=== PATIENT | female | born 1975 | race Caucasian/White ===

== ENCOUNTER → 2016-08-18 | Outpatient (CLI) | payer OTHER ==
[~2016-08-18] MED LIST: ALEV220T26 PO; AUGM875T27 PO; LINZ145C PO; METR500T10 PO; MIRA33504 PO; NORC5TAB PO; OMEP20CA3 PO; SENN-23 PO; VITMTA PO; [UNRECOGNIZED DRUG - CODE] PO
--- NOTE | 2016-08-18 17:15 | REP ---
RIGHT ELBOW, FIVE VIEWS: There is no evidence of an acute fracture, dislocation or intrinsic bone disease. The joint spaces are unremarkable. There is no joint effusion identified. IMPRESSION: No fracture or dislocation. Signed by Darrius Estrada MD 08/19/2016 12:41 P
== END ==
LOC: M LRY 16:33
PROVIDERS: ATTEND Family Medicine
DX: M77.11 Lateral epicondylitis, right elbow (principal)

== ENCOUNTER → 2017-01-12 | Outpatient (CLI) | payer OTHER ==
[~2017-01-12] MED LIST changes: -AUGM875T27 PO; +AUGM875T28 PO; +METR1TAB66 PO; -METR500T10 PO; +NORC1TAB4 PO; -NORC5TAB PO; +[UNRECOGNIZED DRUG - CODE] PO; -[UNRECOGNIZED DRUG - CODE] PO
== END ==
LOC: M RAD 16:09
PROVIDERS: ATTEND Obstetrics & Gynecology
DX: Z12.31 Encounter for screening mammogram for malignant neoplasm of breast (principal)

== ENCOUNTER → 2017-02-04 | Outpatient (CLI) | payer OTHER ==
--- NOTE | 2017-02-05 12:45 | REP ---
Digital diagnostic unilateral left breast mammography with CAD and focused left breast sonography: History: Palpable lump in the left breast in the 3 o'clock position. The patient reports that this has been present for 1 year. Mammographic findings: Routine views are complemented by magnified focal spot compression CC, MLO and true MLO views. These are acquired with a skin marker and affixed to the skin at the site of the palpable lump. The marker projects in the upper outer quadrant at approximately 1-2 o'clock. Scattered fibroglandular elements are seen. There is a small sharply circumscribed 5 mm nodular opacity adjacent to the skin marker on several of the mammographic views. No microcalcifications, architectural distortion, or worrisome skin change is appreciated. Sonographic findings: The left breast is scanned from 12 o'clock to 3 o'clock. At 1 o'clock, 4.8 cm from the nipple there is a complex hypoechoic area with enhanced through transmission resembling clustered microcyst formation. This measures 4 x 2 x 3 mm. There is a small artery adjacent. Also at 1 o'clock and corresponding to the palpable lump, 5.1 cm from the nipple is a 7 x 6 x 9 mm hypoechoic area which shows slight acoustic shadowing on several images. This subtle area is felt to be somewhat suspicious and is felt to correspond with the palpable abnormality. No other abnormality. Impression: BIRADS category 4 suspicious left breast imaging. Suspicious sonographic findings are seen at the palpable lump in the left breast and ultrasound guided needle biopsy is recommended. There is also a benign appearing complex cyst near by in the same area of the left breast. BI-RADS/ACR category 4 mammogram. Suspicious abnormality - biopsy should be considered. Usually requires biopsy. This mammogram was interpreted with the aid of an FDA-approved computer-aided detection system. The patient states she had a clinical breast exam in January 2017. The patient letter being requested is M4. Signed by Lino Xavier MD 02/05/2017 02:16 P
== END ==
LOC: M RAD 15:49
PROVIDERS: ATTEND Obstetrics & Gynecology
DX: N64.4 Mastodynia (principal)
CPT/HCPCS: 76642; G0206

== ENCOUNTER → 2017-04-13 | Outpatient (REF) | payer OTHER | LOC: M SFHCLERA 16:38 | PROVIDERS: ATTEND Nurse Practitioner Family | DX: R30.0 Dysuria (principal) ==

== ENCOUNTER 2017-08-27 12:48 | Day surgery (SDC) | payer OTHER ==
[2017-08-27] MEDS: NS 1,000 ML IV (13:30)
[2017-08-27] MEDS ORDERED: PROPOFOL 200 MG/20 ML VIAL As Ordered (13:34)
[2017-08-27] MEDS ORDERED: LIDOCAINE 2% INJ 100 MG/5 ML SDV (FOR ANES.) As Ordered (14:24)
== END 2017-08-27 14:36 | disposition home or self-care (01) ==
LOC: M OPP 12:48
DX: R12 Heartburn (principal); K29.70 Gastritis, unspecified, without bleeding; K58.9 Irritable bowel syndrome, unspecified; K59.00 Constipation, unspecified; K21.9 Gastro-esophageal reflux disease without esophagitis; R06.83 Snoring; F17.200 Nicotine dependence, unspecified, uncomplicated; Z88.1 Allergy status to other antibiotic agents; Z79.899 Other long term (current) drug therapy
CPT/HCPCS: 43239

== ENCOUNTER → 2019-02-17 | Outpatient (CLI) | payer OTHER ==
[~2019-02-17] MED LIST changes: +LINZ290C PO; +METR-265 PO; -METR1TAB66 PO; +MM S100C PO; -NORC1TAB4 PO; +NORC1TAB7 PO; -OMEP20CA3 PO; +OMEP20CA4 PO
== END ==
LOC: M RAD 15:06
PROVIDERS: ATTEND Obstetrics & Gynecology
DX: Z12.31 Encounter for screening mammogram for malignant neoplasm of breast (principal)

== ENCOUNTER → 2019-04-24 | Outpatient (CLI) | payer OTHER ==
--- NOTE | 2019-04-24 15:58 | REPMRS ---
Patient History The patient states she had a clinical breast exam in 2018. Family history of colorectal cancer in paternal grandfather. 3D TOMOSYNTHESIS WAS PERFORMED. The Ryan Galvez lifetime risk for breast cancer is 14.4%. Digital Mammo Screening Bilat: April 24, 2019 - Exam #: [id number] Bilateral CC and MLO view(s) were taken. Technologist: Melly Lara, Technologist Prior study comparison: February 04, 2017, left breast digital mammo diagnostic unilateral performed at [facility]. FINDINGS: The breast tissue is heterogeneously dense. This may lower the sensitivity of mammography. There has been no change in the appearance of the mammogram from the prior studies. There is a moderate amount of residual fibroglandular tissue which is fairly symmetric. There is no interval development of dominant mass, areas of architectural distortion, or clustered microcalcification typical of malignancy. Assessment: BI-RADS/ACR category 1 mammogram. Negative Mammogram. Recommendation Routine screening mammogram in 1 year (for women over age 40). This mammogram was interpreted with the aid of an FDA-approved computer-aided dectection system. Electronically Signed By: Darrius Estrada MD 04/24/19 [id number]
== END ==
LOC: M RAD 15:00
PROVIDERS: ATTEND Obstetrics & Gynecology
DX: Z12.31 Encounter for screening mammogram for malignant neoplasm of breast (principal)

== ENCOUNTER → 2020-04-23 | Outpatient (CLI) | payer OTHER ==
[~2020-04-23] MED LIST changes: +OMEP1CAP73 PO; -OMEP20CA4 PO; +[UNRECOGNIZED DRUG - CODE] PO; -[UNRECOGNIZED DRUG - CODE] PO
--- NOTE | 2020-04-23 18:08 | REP ---
INDICATION: SACROILIAC DYSFUNCTION, IMPINGEMENT, TENDONITIS, PAIN. COMPARISON: None. TECHNIQUE: Full cervical spine series performed including flexion and extension lateral views. FINDINGS: There is no compression fracture. There is no prevertebral soft tissue swelling. In the neutral position there is straightening and slight reversal of the normal cervical lordosis. In extension there is about 1 mm of retrolisthesis of C3 on C4 and C4 on C5. This reduces in the neutral position and in flexion. The disc spaces are relatively well preserved. There is no radiographic evidence of significant neural foraminal narrowing bilaterally. Small rudimentary cervical ribs are noted at the C7 level. IMPRESSION: No compression deformity. In extension there is about 1 mm of retrolisthesis of C3 on C4 and C4 on C5. This reduces in the neutral position and in flexion. The disc spaces are relatively well preserved. <Electronically signed by Darrius Estrada > 04/23/20 [id number]
--- NOTE | 2020-04-23 18:09 | REP ---
INDICATION: SACROILIAC DYSFUNCTION, IMPINGEMENT, TENDONITIS, PAIN. COMPARISON: None. TECHNIQUE: Three views right shoulder obtained. FINDINGS: There is no acute fracture, dislocation or intrinsic bone disease. The joint spaces appear normal. IMPRESSION: Negative right shoulder series. <Electronically signed by Darrius Estrada > 04/23/20 [id number]
--- NOTE | 2020-04-23 18:10 | REP ---
INDICATION: SACROILIAC DYSFUNCTION, IMPINGEMENT, TENDONITIS, PAIN COMPARISON: None. TECHNIQUE: Four views left wrist obtained. FINDINGS: There is no evidence of acute fracture, dislocation, or intrinsic bone disease.The joint spaces are unremarkable. IMPRESSION: Negative left wrist series. <Electronically signed by Drarius Etsrada > 04/23/20 [id number]
--- NOTE | 2020-04-23 18:13 | REP ---
INDICATION: SACROILIAC DYSFUNCTION, IMPINGEMENT, TENDONITIS, PAIN. COMPARISON: None. TECHNIQUE: Five views sacroiliac joints performed. FINDINGS: No fracture or dislocation is seen. There is mild bilateral narrowing and subchondral sclerosis at the sacroiliac joints in a symmetrical fashion. IMPRESSION: Mild bilateral arthritic changes sacroiliac joints. <Electronically signed by Darrius Estrada > 04/23/20 [id number]
[2020-04-23 19:39] LABS: BASO # 0.1 10^3/uL (0.0-0.2); BASO % 0.7 % (0.0-1.0); EOS % 8.6 % (0.0-3.0); HEMATOCRIT 44.2 % (36.0-47.0); HEMOGLOBIN 14.7 g/dl (12.0-15.5); LYMPH # 3.5 10^3/uL (1.5-5.0); LYMPH % 29.5 % (24.0-44.0); MEAN CORPUSCULAR HEMOGLOBIN 30.6 pg (27.0-33.0); MEAN CORPUSCULAR HGB CONC 33.3 g/dl (32.0-36.5); MEAN CORPUSCULAR VOLUME 92.1 fl (80.0-96.0); MONO # 1.3 10^3/uL (0.0-0.8); NEUTROPHILS # 5.9 10^3/uL (1.5-8.5); NEUTROPHILS % 49.8 % (36.0-66.0); PLATELET COUNT, AUTOMATED 403 10^3/uL (150-450); WHITE BLOOD COUNT 11.8 10^3/uL (4.0-10.0)
[2020-04-23 20:28] LABS: ERYTHROCYTE SEDIMENTATION RATE 1 mm/hr (0-20)
[2020-04-26 20:07] LABS: ANA (HEP2) Negative (.)
== END ==
LOC: M WUC 16:19
PROVIDERS: ATTEND Family Medicine
DX: M53.3 Sacrococcygeal disorders, not elsewhere classified (principal); M75.41 Impingement syndrome of right shoulder; M77.8 Other enthesopathies, not elsewhere classified; M50.31 Other cervical disc degeneration, high cervical region; M50.321 Other cervical disc degeneration at C4-C5 level

== ENCOUNTER → 2020-05-13 | Outpatient (CLI) | payer OTHER ==
[2020-05-13 20:10] LABS: BASO # 0.1 10^3/uL (0.0-0.2); BASO % 0.7 % (0.0-1.0); EOS # 0.9 10^3/uL (0.0-0.5); EOS % 6.9 % (0.0-3.0); HEMATOCRIT 42.4 % (36.0-47.0); HEMOGLOBIN 13.8 g/dl (12.0-15.5); LYMPH # 3.3 10^3/uL (1.5-5.0); LYMPH % 27.3 % (24.0-44.0); MEAN CORPUSCULAR HEMOGLOBIN 29.6 pg (27.0-33.0); MEAN CORPUSCULAR HGB CONC 32.5 g/dl (32.0-36.5); MONO # 1.2 10^3/uL (0.0-0.8); MONO % 9.8 % (0.0-5.0); NEUTROPHILS # 6.7 10^3/uL (1.5-8.5); NEUTROPHILS % 54.9 % (36.0-66.0); PLATELET COUNT, AUTOMATED 368 10^3/uL (150-450); RED BLOOD COUNT 4.66 10^6/uL (4.00-5.40); WHITE BLOOD COUNT 12.2 10^3/uL (4.0-10.0)
== END ==
LOC: M WUC 16:17
PROVIDERS: ATTEND Family Medicine
DX: D72.829 Elevated white blood cell count, unspecified (principal)

== ENCOUNTER → 2020-05-20 | Outpatient (CLI) | payer OTHER ==
[2020-05-20 20:01] LABS: BASO # 0.1 10^3/uL (0.0-0.2); BASO % 0.6 % (0.0-1.0); EOS # 0.9 10^3/uL (0.0-0.5); EOS % 8.2 % (0.0-3.0); HEMATOCRIT 40.9 % (36.0-47.0); HEMOGLOBIN 13.6 g/dl (12.0-15.5); LYMPH # 3.1 10^3/uL (1.5-5.0); LYMPH % 29.1 % (24.0-44.0); MEAN CORPUSCULAR HEMOGLOBIN 30.4 pg (27.0-33.0); MEAN CORPUSCULAR HGB CONC 33.3 g/dl (32.0-36.5); MEAN CORPUSCULAR VOLUME 91.5 fl (80.0-96.0); MONO % 9.6 % (0.0-5.0); NEUTROPHILS # 5.6 10^3/uL (1.5-8.5); NEUTROPHILS % 52.3 % (36.0-66.0); PLATELET COUNT, AUTOMATED 361 10^3/uL (150-450); RED BLOOD COUNT 4.47 10^6/uL (4.00-5.40); WHITE BLOOD COUNT 10.7 10^3/uL (4.0-10.0)
== END ==
LOC: M WUC 16:21
PROVIDERS: ATTEND Family Medicine
DX: D72.829 Elevated white blood cell count, unspecified (principal)

== ENCOUNTER 2020-05-27 14:22 | Outpatient (RCR) | payer OTHER | END 2020-05-30 | LOC: M PT 14:22 | PROVIDERS: ATTEND Family Medicine | DX: Z51.89 Encounter for other specified aftercare (principal); M77.8 Other enthesopathies, not elsewhere classified; M75.41 Impingement syndrome of right shoulder; M53.3 Sacrococcygeal disorders, not elsewhere classified; M54.2 Cervicalgia ==

== ENCOUNTER 2020-06-10 14:21 | Outpatient (RCR) | payer OTHER | END 2020-06-30 | LOC: M PT 14:21 | PROVIDERS: ATTEND Family Medicine | DX: Z51.89 Encounter for other specified aftercare (principal); M77.8 Other enthesopathies, not elsewhere classified; M75.41 Impingement syndrome of right shoulder; M53.3 Sacrococcygeal disorders, not elsewhere classified; M54.2 Cervicalgia ==

== ENCOUNTER → 2020-07-11 | Outpatient (CLI) | payer OTHER ==
--- NOTE | 2020-07-11 15:39 | REPMRS ---
Patient History The patient states she had a clinical breast exam in 05/2020. Family history of colorectal cancer in paternal grandfather. No Hormone Replacement Therapy Digital Woman Screen Mammo: July 11, 2020 - Exam #: [id number] Bilateral CC and MLO view(s) were taken. Technologist: Vesna Garcia, Technologist Prior study comparison: April 24, 2019, bilateral digital mammo screening bilat, performed at [facility]. February 04, 2017, left breast digital mammo diagnostic unilateral, performed at [facility]. FINDINGS: The breast tissue is heterogeneously dense. This may lower the sensitivity of mammography. The Volpara volumetric breast density category is: C. There is a moderate amount of heterogeneously dense fibroglandular tissue which is fairly symmetric. There is no interval development of dominant mass, architectural distortion, or grouped microcalcification typical of malignancy. There has been no change in the appearance of the mammogram from the prior studies. 3-D tomosynthesis shows no additional findings. Assessment: BI-RADS/ACR category 1 mammogram. Negative Mammogram. Recommendation Routine screening mammogram of both breasts in 1 year (for women over age 40). This patient's [facility] Lifetime Breast Cancer RIsk is estimated at 14.1 %. This mammogram was interpreted with the aid of an FDA-approved computer-aided dectection system. Electronically Signed By: Deangelo Xavier MD 07/11/20 [id number]
== END ==
LOC: M WHC 14:55
PROVIDERS: ATTEND Obstetrics & Gynecology
DX: Z12.31 Encounter for screening mammogram for malignant neoplasm of breast (principal)

== ENCOUNTER → 2020-09-03 | Outpatient (REF) | payer OTHER ==
[~2020-09-03] MED LIST changes: +NAPR220C24 PO
== END ==
LOC: M SFHCLERA 16:05
PROVIDERS: ATTEND Nurse Practitioner Family
DX: R30.0 Dysuria (principal)

== ENCOUNTER → 2020-10-31 | Outpatient (CLI) | payer OTHER ==
[~2020-10-31] MED LIST changes: +LEXA5TAB13 PO
--- NOTE | 2020-11-02 06:16 | ECWPNPC ---
PATIENT NAME: LAURIE MAO : 1975 GENDER: FEMALE VISIT DATE: 10/31/2020 DISCHARGE DATE: 10/31/20 1354 VISIT LOCKED DATE TIME: PHYSICIAN: JOANNE LEMA PHYSICIAN PAGER NO: ACTIVE RESOURCE: JOANNE LEMA REASON FOR APPOINTMENT 1. BACK PAIN HISTORY OF PRESENT ILLNESS DEPRESSION SCREENING: PHQ-9 LITTLE INTEREST OR PLEASURE IN DOING THINGSNEARLY EVERY DAY FEELING DOWN, DEPRESSED, OR HOPELESSMORE THAN HALF THE DAYS TROUBLE FALLING OR STAYING ASLEEP, OR SLEEPING TOO MUCHSEVERAL DAYS FEELING TIRED OR HAVING LITTLE ENERGYSEVERAL DAYS POOR APPETITE OR OVEREATING MORE THAN HALF THE DAYS FEELING BAD ABOUT YOURSELF-OR THAT YOU ARE A FAILURE OR HAVE LET YOURSELF OR YOUR FAMILY DOWN SEVERAL DAYS TROUBLE CONCENTRATING ON THINGS, SUCH READING THE NEWSPAPER OR WATCHING TELEVISION NOT AT ALL MOVING OR SPEAKING SO SLOWLY THAT OTHER PEOPLE COULD HAVE NOTICED. OR THE OPPOSITE- BEING SO FIDGETY OR RESTLESS THAT YOU HAVE BEEN MOVING AROUND A LOT MORE THAN USUALNOT AT ALL THOUGHTS THAT YOU WOULD BE BETTER OFF , OR OF HURTING YOURSELF IN SOME WAY?NOT AT ALL TOTAL SCORE:10 INTERPRETATIONMODERATE DEPRESSION PHQ-2 (2015 EDITION) LITTLE INTEREST OR PLEASURE IN DOING THINGS?NEARLY EVERY DAY FEELING DOWN, DEPRESSED, OR HOPELESS?MORE THAN HALF THE DAYS TOTAL SCORE5 GENERAL: HERE PER REFERRAL OF PRIMARY CARE FOR CHRONIC GENERALIZED BACK PAIN. DENIES PRECIPITATING EVENT. STATES THIS BEGAN ABOUT ONE YEAR AGO. PAIN IS WORSE AFTER STANDING ALL DAY LONG. HAS TRIED MULTIPLE DIFFERENT MEDICATIONS TO INCLUDE ALEVE, VOLTAREN GEL, CYMBALTA AND GABAPENTIN WITHOUT IMPROVEMENT. HAS HAD PHYSICAL THERAPY RECENTLY WITHOUT IMPROVEMENT. CONTINUES USING HEAT WHEN SHE GETS OUT OF WORK AND DOING HOME STRETCHING EXERCISES. CURRENTLY BEING EVALUATED BY ONCOLOGY FOR ABNORMAL BLOOD WORK. RECENT CARPAL TUNNEL RELEASE AT [facility]. DENIES BOWEL OR BLADDER INCONTINENCE. REPORTS WEIGHT GAIN. - - -. FALL RISK SCREENING: SCREENING ONE FALL IN 09/2020 HURT HER LEFT ANKLE SPRAIN, STATED THAT SHE DID GO TO ER FOR IT. PAIN SCREENING: PATIENT HAS A COMPLAINT OF ACUTE OR CHRONIC PAIN :YES LOCATION OF PAIN:MID BACK, LOW BACK INTENSITY OF PAIN (SCALE OF 1 TO 10):1 WHAT DOES YOUR PAIN FEEL LIKE:ACHING DURATION:CONTINOUS, CONSTANT, ALL DAY PAIN IS INCREASED BY:ACTIVITIES, PROLONGED STANDING PAIN IS DECREASED BY:OTHERS HEAT AND STRETCHING NURSING NOTE: - - -. PAIN CENTER INTAKE QUESTIONS: DO YOU HAVE A HISTORY OF MRSA? :NO DO YOU TAKE A BLOOD THINNERS? :NO DO YOU HAVE ANY BLEEDING DISORDERS? :NO ANY NEW NUMBNESS OR WEAKNESS IN YOUR LEGS OR ARMS? :NO ANY PACEMAKER,DEFIBRILLATOR, OR DORSAL COLUMN STIMULATOR? :NO DO YOU HAVE ANY RASHES OR OPEN SORES? :NO ARE YOU ALLERGIC TO IV DYE? :NO ARE YOU DIABETIC? :NO ANY NEW PROBLEMS WITH YOUR MEDICATIONS? :NO HAVE YOU RECEIVED A VACCINE IN THE PAST 30 DAYS? :NO DO YOU PLAN TO RECEIVE A VACCINE IN THE NEXT 21 DAYS? :NO DO YOU NEED ANY PRESCRIPTION? :NO DO YOU TAKE ANY IMMUNOSUPPRESSIVE MEDICATIONS? :NO IS THERE A CHANCE YOU COULD BE ? :NO ARE YOU BREAST FEEDING? :NO CURRENT MEDICATIONS TAKING SENNA S 8.6-50MG TABLET 6 TABLETS ORALLY ONCE IN THE MORNING TAKING ALEVE 220 MG CAPSULE 3 TABLETS ORALLY FOUR TIMES A DAY, NOTES: TAKES 9-12 DAILY TAKING MULTIVITAMIN - TABLET 1 TABLET ORALLY ONCE A DAY TAKING ZYRTEC ALLERGY 10 MG TABLET 1 TABLET ORALLY ONCE A DAY TAKING OMEPRAZOLE 40 MG CAPSULE DELAYED RELEASE 1 CAPSULE ORALLY ONCE A DAY TAKING LEXAPRO 5 MG TABLET 1 TABLET ORALLY ONCE A DAY TAKING LINZESS 290 MCG CAPSULE 1 CAPSULE ORALLY ONCE A DAY MEDICATION LIST REVIEWED AND RECONCILED WITH THE PATIENT PAST MEDICAL HISTORY SEASONAL ALLERGIC RHINITIS GERD WITHOUT ESOPHAGITIS WEIGHT GAIN OCD (OBSESSIVE COMPULSIVE DISORDER) TOBACCO ABUSE ONE FALL IN 09/2020 HURT HER LEFT ANKLE SPRAIN, STATED THAT SHE DID GO TO ER FOR IT. LOWER NAD ID BACK PAIN ALLERGIES BACTRIM: HIVES - ALLERGY SURGICAL HISTORY TUBAL LIGATION WISDOM TEETH EXTRACT 6TH GRADE LAPAROSCOPY OPEN FALLOPIAN TUBES FOR FERTILITY 2006 HYSTERECTOMY FOR ABNORMAL UTERINE BLEEDING, BY DR. DAMIAN, STILL HAS OVARIES FALL 2018 CARPAL TUNNEL RELEASE AT [facility] FAMILY HISTORY FATHER: ALIVE 57 YRS MOTHER: ALIVE 55 YRS, DIAGNOSED WITH HYPERTENSION, DIABETES SIBLINGS: ALIVE SON(S): ALIVE 13 YRS 2 BROTHER(S) , 3 SISTER(S) - HEALTHY. 1 SON(S) - HEALTHY. NO HISTORY OF CANCERS. MATERNAL GRANDMOTHER-MS. SOCIAL HISTORY GENERAL: TOBACCO USE ARE YOU A:CURRENT SMOKER ARE YOU INTERESTED IN QUITTING?READY TO QUIT PREVIOUS QUIT ATTEMPTS?YES, MORE THAN 6 MONTHS AGO. COUNSELED THE PATIENT ON TOBACCO USE, CESSATION [id number]/04/2021 HOW MANY CIGARETTES A DAY DO YOU SMOKE?11-20 HOW SOON AFTER YOU WAKE UP DO YOU SMOKE YOUR FIRST CIGARETTE?6-30 MIN HOW OFTEN DO YOU SMOKE CIGARETTES?EVERY DAY PATIENT COUNSELED ON THE DANGERS OF TOBACCO USE AND URGED TO QUIT:10/01/2020 VAPORNO E-CIGARETTENO LATEX QUESTIONNAIRE LATEX ALLERGY : HAVE YOU EVER DEVELOPED ANY TYPE OF REACTION AFTER HANDLING LATEX PRODUCTS SUCH RUBBER GLOVES, CONDOMS, DIAPHRAGMS, BALLOONS, SOCKS, OR UNDERWEAR?NO LATEX ALLERGY : HAVE YOU EVER DEVELOPED ANY TYPE OF REACTION DURING OR AFTER DENTAL APPOINTMENT, VAGINAL/RECTAL EXAMINATION, SURGICAL PROCEDURE, OR ANY OTHER EXPOSURE?NO LATEX RISK : HAVE YOU EVER HAD ANY DIFFICULTY BREATHING OR HIVES AFTER EATING OR HANDLING ANY FRUITS, OR VEGETABLES; SUCH KIWI, BANANAS, STONE FRUITS, OR CHESTNUTSNO LATEX RISK : DO YOU HAVE A PREVIOUS PERSONAL HISTORY OF MORE THAN NINE SURGERIES, SPINA BIFIDA, OR REPEATED CATHERIZATIONS? NO LATEX RISK : ARE YOU FREQUENTLY EXPOSED TO LATEX PRODUCTS IN YOUR OCCUPATION?NO DATE ASKED : 10/31/2020 ALCOHOL USE: YES, ONCE A MONTH. ALCOHOL SCREENING DID YOU HAVE A DRINK CONTAINING ALCOHOL IN THE PAST YEAR?YES HOW OFTEN DID YOU HAVE SIX OR MORE DRINKS ON ONE OCCASION IN THE PAST YEAR?NEVER (0 POINTS) HOW MANY DRINKS DID YOU HAVE ON A TYPICAL DAY WHEN YOU WERE DRINKING IN THE PAST YEAR?1 OR 2 (0 POINTS) HOW OFTEN DID YOU HAVE A DRINK CONTAINING ALCOHOL IN THE PAST YEAR?NEVER (0 POINTS) POINTS0 INTERPRETATIONNEGATIVE RECREATIONAL DRUG USE DENIES. CAFFEINE NO BEVERAGES, BUT TAKES STAY AWAKES. HIV / HEP-C SCREENING HIV TEST OFFERED TO PATIENT:YES DATE OFFERED:08/30/2018 TEST ACCEPTED:NO HEP-C TEST OFFERED TO PATIENT:NO REASON:PATIENT DECLINED BROCHURE PROVIDED TO PATIENTYES [employer] [id number] NONE LANGUAGE LANGUAGES SPOKEN:ARMENIAN EDUCATION HS GRAD. LEARNING BARRIERS / SPECIAL NEEDS CHANGE FROM LAST VISIT?NO BARRIERS TO LEARNING?NO HEARING IMPAIRED?NO VISION IMPAIRED?NO COGNITIVELY IMPAIRED?NO READINESS TO LEARN?YES LEARNING PREFERENCES?NO LEARNING CAPABILITIES PRESENT?YES EMOTIONAL BARRIERS?NO SPECIAL DEVICES?NO MEAT INSPECTOR NEEDED?NO DOMESTIC VIOLENCE DO YOU FEEL SAFE IN YOUR ENVIRONMENT?YES OCCUPATION: [employer]. DIET: REGULAR DIET, BARELY EATS. EXERCISE: NO REGULAR EXERCISE. MARITAL STATUS: .. OTHERS AT HOME: CHILD, BOYFRIEND. HOSPITALIZATION/MAJOR DIAGNOSTIC PROCEDURE SURGERY CHILDBIRTH 2008 REVIEW OF SYSTEMS CONSTITUTIONAL: ANY RECENT FEVER NO . CHILLS NO . WEIGHT CHANGE OF UNKNOWN REASONS NO . GASTROENTEROLOGY: NEW UNEXPLAINABLE CHANGES IN BOWEL CONTROL NO . CONSTIPATION NO . GENITOURINARY: ANY NEW CHANGE IN BLADDER CONTROL? NO . NEUROLOGY: NEW ONSET DIZZINESS OR NEUROLOGICAL CHANGES NOT MENTIONED NO . NEW NUMBNESS OR PAIN PATTERNS NOT MENTIONED AND PERTINENT TO TODAY'S VISIT NO . CARDIOLOGY: NEW CHEST PRESSURE NO . PATIENT DENIES NO . RESPIRATORY: UNEXPLAINABLE COUGH NO . NEW SHORTNESS OF BREATH NO . VITAL SIGNS WT 151 LBS, HT 62 IN, BMI 27.62 INDEX, BP 123/72 MM HG, HR 82 /MIN, RR 16 /MIN, TEMP 97.3 F, OXYGEN SAT % 98%, SAFE IN ENV? (Y/N) YEST.KRISTA DYE. EXAMINATION GENERAL EXAMINATION: GENERALNO ACUTE DISTRESS, WELL NOURISHED AND HYDRATED. PSYCHAPPROPRIATE MOOD AND AFFECT . NECK:NO LYMPHADENOPATHY, SUPPLE. LUNGS:CLEAR TO AUSCULTATION BILATERALLY, NO WHEEZES, RHONCHI, RALES. HEART:NO MURMURS, REGULAR RATE AND RHYTHM. BACK:TENDERNESS AND TRIGGER POINTS NOTED OVER RIGHT MID SCAPULAR EXTENDING DOWN INTO RIGHT LUMBAR PARASPINAL REGION. TENDER OVER BILATERAL LUMBAR REGION. . ASSESSMENTS LOW BACK PAIN AT MULTIPLE SITES - M54.5 (PRIMARY) MYALGIA, OTHER SITE - M79.18 TREATMENT LOW BACK PAIN AT MULTIPLE SITES STOP ALEVE CAPSULE, 220 MG, 3 TABLETS, ORALLY, FOUR TIMES A DAY, NOTES: TAKES 9-12 DAILY STOP LEXAPRO TABLET, 5 MG, 1 TABLET, ORALLY, ONCE A DAY START IBUPROFEN TABLET, 600 MG, 1 TABLET WITH FOOD OR MILK NEEDED, ORALLY, THREE TIMES A DAY, 30 DAYS, 90 TABLET, REFILLS 5 START CYMBALTA CAPSULE DELAYED RELEASE PARTICLES, 30 MG, 1 CAPSULE, ORALLY, ONCE A DAY, 30 DAY(S), 30, REFILLS 2 START TIZANIDINE HCL TABLET, 2 MG, 1 TABLET NEEDED, ORALLY, Q4-6 HRS NEEDED FOR SEVERE PAIN EPISODES NOT TO EXCEED 3 TAB IN 24HR PERIOD, 30 DAYS, 30, REFILLS 2 NOTES: ADVISED PATIENT TO STOP ALEVE AND LEXAPRO. START CYMBALTA 30 MG 1 TABLET IN MORNING. START IBUPROFEN 600 MG CAPSULE WITH ACETAMINOPHEN 650 MG STRENGTH 3 TIMES DAILY. START TIZANIDINE 2 MG TABLET NEEDED FOR SEVERE PAIN EPISODES. FOLLOW-UP IS SCHEDULED IN 6-8 WEEKS. PRINTED INFORMATION ON NEW MEDICATION FOR PATIENT ANTHONY DYE. PROCEDURE CODES FA211 ESTABILISHED PATIENT [facility] CHARGE DISPOSITION & COMMUNICATION FOLLOW UP 6-8WKS (REASON: GENERALIZED BACK PAIN/MEDICATION MANAGEMENT AFTER STARTING NEW MEDS) ELECTRONICALLY SIGNED BY LIZZ MENON ON 11/01/2020 AT 10:18 AM EDT DISCLAIMER : THIS IS A VISIT SUMMARY EXTRACTED FROM THE [employer] CHART. IT IS NOT A COPY OF THE [employer] PROGRESS NOTE. LOGAN
== END ==
LOC: M PAIN 13:00
PROVIDERS: ATTEND Nurse Practitioner Family
DX: M54.5 Low back pain (principal); M79.18 Myalgia, other site; K21.9 Gastro-esophageal reflux disease without esophagitis; F17.210 Nicotine dependence, cigarettes, uncomplicated; Z86.59 Personal history of other mental and behavioral disorders; Z88.1 Allergy status to other antibiotic agents; Z79.899 Other long term (current) drug therapy

== ENCOUNTER → 2020-12-24 | Outpatient (CLI) | payer OTHER ==
--- NOTE | 2020-12-26 00:28 | ECWPNPC ---
PATIENT NAME: LAURIE MAO : 1975 GENDER: FEMALE VISIT DATE: 12/24/2020 DISCHARGE DATE: 12/24/20 1522 VISIT LOCKED DATE TIME: PHYSICIAN: JOANNE LEMA PHYSICIAN PAGER NO: ACTIVE RESOURCE: JOANNE LEMA REASON FOR APPOINTMENT 1. GENERALIZED BACK PAIN/MEDICATION MANAGEMENT AFTER STARTING NEW MEDS HISTORY OF PRESENT ILLNESS GENERAL: HERE FOR FOLLOW-UP AFTER INITIAL VISIT FOR CHRONIC LOW BACK PAIN. AT HER LAST VISIT I PUT HER ON CYMBALTA 30 MG DAILY. I ALSO PRESCRIBED TIZANIDINE 2 MG TABLETS TO TAKE INTERMITTENTLY FOR SEVERE PAIN EPISODES. CURRENTLY TAKING TYLENOL/IBUPROFEN COMBINATION VPMG-[id number] 3 TIMES A DAY AND CYMBALTA 30 MG DAILY. STATES SHE HAS NOT STARTED TIZANIDINE SHE DID NOT FEEL THOUGH IT WOULD BE HELPFUL. REPORTING SEVERE LOW BACK PAIN DESPITE HER CURRENT REGIMENT FOR PAIN. SHE CONTINUES TO WORK FULL-TIME. DISCUSSED MEDICATION TREATMENT PLAN AT LENGTH. -. FALL RISK SCREENING: SCREENING : NO FALLS REPORTED IN THE LAST YEAR. PAIN SCREENING: PATIENT HAS A COMPLAINT OF ACUTE OR CHRONIC PAIN :YES LOCATION OF PAIN:LOW BACK INTENSITY OF PAIN (SCALE OF 1 TO 10):8 WHAT DOES YOUR PAIN FEEL LIKE:ACHING, CONTINOUS, THROBBING DURATION:CONTINOUS, CONSTANT, ALL DAY PAIN IS INCREASED BY:ACTIVITIES PAIN IS DECREASED BY:USE OF PAIN MEDICATIONS NURSING NOTE: -. PAIN CENTER INTAKE QUESTIONS: DO YOU HAVE A HISTORY OF MRSA? :NO DO YOU TAKE A BLOOD THINNERS? :NO DO YOU HAVE ANY BLEEDING DISORDERS? :NO ANY NEW NUMBNESS OR WEAKNESS IN YOUR LEGS OR ARMS? :NO ANY PACEMAKER,DEFIBRILLATOR, OR DORSAL COLUMN STIMULATOR? :NO DO YOU HAVE ANY RASHES OR OPEN SORES? :NO ARE YOU ALLERGIC TO IV DYE? :NO ARE YOU DIABETIC? :NO ANY NEW PROBLEMS WITH YOUR MEDICATIONS? :NO HAVE YOU RECEIVED A VACCINE IN THE PAST 30 DAYS? :NO DO YOU PLAN TO RECEIVE A VACCINE IN THE NEXT 21 DAYS? :NO DO YOU NEED ANY PRESCRIPTION? :NO DO YOU TAKE ANY IMMUNOSUPPRESSIVE MEDICATIONS? :NO IS THERE A CHANCE YOU COULD BE ? :NO ARE YOU BREAST FEEDING? :NO CURRENT MEDICATIONS TAKING MULTIVITAMIN - TABLET 1 TABLET ORALLY ONCE A DAY TAKING ZYRTEC ALLERGY 10 MG TABLET 1 TABLET ORALLY ONCE A DAY TAKING OMEPRAZOLE 40 MG CAPSULE DELAYED RELEASE 1 CAPSULE ORALLY ONCE A DAY TAKING LINZESS 290 MCG CAPSULE 1 CAPSULE ORALLY ONCE A DAY TAKING CYMBALTA 30 MG CAPSULE DELAYED RELEASE PARTICLES 1 CAPSULE ORALLY ONCE A DAY TAKING IBUPROFEN 600 MG TABLET 1 TABLET WITH FOOD OR MILK NEEDED ORALLY THREE TIMES A DAY TAKING TIZANIDINE HCL 2 MG TABLET 1 TABLET NEEDED ORALLY Q4-6 HRS NEEDED FOR SEVERE PAIN EPISODES NOT TO EXCEED 3 TAB IN 24HR PERIOD TAKING SENNA S 8.6-50MG TABLET 6 TABLETS ORALLY ONCE IN THE MORNING TAKING TYLENOL 8 HOUR ARTHRITIS PAIN 650 MG TABLET EXTENDED RELEASE 3 TABLETS NEEDED ORALLY EVERY 8 HRS MEDICATION LIST REVIEWED AND RECONCILED WITH THE PATIENT PAST MEDICAL HISTORY SEASONAL ALLERGIC RHINITIS GERD WITHOUT ESOPHAGITIS WEIGHT GAIN OCD (OBSESSIVE COMPULSIVE DISORDER) TOBACCO ABUSE ONE FALL IN 09/2020 HURT HER LEFT ANKLE SPRAIN, STATED THAT SHE DID GO TO ER FOR IT. LOWER NAD GA BACK PAIN ALLERGIES BACTRIM: HIVES - ALLERGY SOCIAL HISTORY GENERAL: TOBACCO USE ARE YOU A:CURRENT SMOKER ARE YOU INTERESTED IN QUITTING?READY TO QUIT PREVIOUS QUIT ATTEMPTS?YES, MORE THAN 6 MONTHS AGO. COUNSELED THE PATIENT ON TOBACCO USE, CESSATION [id number]/27/2021 HOW MANY CIGARETTES A DAY DO YOU SMOKE?11-20 HOW SOON AFTER YOU WAKE UP DO YOU SMOKE YOUR FIRST CIGARETTE?6-30 MIN HOW OFTEN DO YOU SMOKE CIGARETTES?EVERY DAY PATIENT COUNSELED ON THE DANGERS OF TOBACCO USE AND URGED TO QUIT:12/24/2020 VAPORNO E-CIGARETTENO LATEX QUESTIONNAIRE LATEX ALLERGY : HAVE YOU EVER DEVELOPED ANY TYPE OF REACTION AFTER HANDLING LATEX PRODUCTS SUCH RUBBER GLOVES, CONDOMS, DIAPHRAGMS, BALLOONS, SOCKS, OR UNDERWEAR?NO LATEX ALLERGY : HAVE YOU EVER DEVELOPED ANY TYPE OF REACTION DURING OR AFTER DENTAL APPOINTMENT, VAGINAL/RECTAL EXAMINATION, SURGICAL PROCEDURE, OR ANY OTHER EXPOSURE?NO LATEX RISK : HAVE YOU EVER HAD ANY DIFFICULTY BREATHING OR HIVES AFTER EATING OR HANDLING ANY FRUITS, OR VEGETABLES; SUCH KIWI, BANANAS, STONE FRUITS, OR CHESTNUTSNO LATEX RISK : DO YOU HAVE A PREVIOUS PERSONAL HISTORY OF MORE THAN NINE SURGERIES, SPINA BIFIDA, OR REPEATED CATHERIZATIONS? NO LATEX RISK : ARE YOU FREQUENTLY EXPOSED TO LATEX PRODUCTS IN YOUR OCCUPATION?NO DATE ASKED : 12/24/2020 ALCOHOL USE: YES, ONCE A MONTH. LUNG CANCER SCREENING SMOKING STATUS:CURRENT SMOKER ALCOHOL SCREENING DID YOU HAVE A DRINK CONTAINING ALCOHOL IN THE PAST YEAR?YES HOW OFTEN DID YOU HAVE SIX OR MORE DRINKS ON ONE OCCASION IN THE PAST YEAR?NEVER (0 POINTS) HOW MANY DRINKS DID YOU HAVE ON A TYPICAL DAY WHEN YOU WERE DRINKING IN THE PAST YEAR?1 OR 2 (0 POINTS) HOW OFTEN DID YOU HAVE A DRINK CONTAINING ALCOHOL IN THE PAST YEAR?NEVER (0 POINTS) POINTS0 INTERPRETATIONNEGATIVE RECREATIONAL DRUG USE DRUG USE?NO CAFFEINE CAFFEINE USE?YES SEXUAL HX HAD SEX IN THE LAST 12 MONTHS (VAGINAL, ORAL, OR ANAL)?YES WITHMEN ONLY USE PROTECTION?NO HAVE YOU EVER HAD AN STD?YES HERPES?YES HIV / HEP-C SCREENING HIV TEST OFFERED TO PATIENT:YES DATE OFFERED:08/30/2018 TEST ACCEPTED:NO HEP-C TEST OFFERED TO PATIENT:NO REASON:PATIENT DECLINED BROCHURE PROVIDED TO PATIENTYES SCIENTOLOGY [id number] NONE LANGUAGE LANGUAGES SPOKEN:[employer]. LEARNING BARRIERS / SPECIAL NEEDS CHANGE FROM LAST VISIT?NO BARRIERS TO LEARNING?NO HEARING IMPAIRED?NO VISION IMPAIRED?YES :CORRECTIVE LENSES READING COGNITIVELY IMPAIRED?NO READINESS TO LEARN?YES LEARNING PREFERENCES?NO LEARNING CAPABILITIES PRESENT?YES EMOTIONAL BARRIERS?NO SPECIAL DEVICES?NO [employer] DEVELOPER NEEDED?NO DOMESTIC VIOLENCE DO YOU FEEL SAFE IN YOUR ENVIRONMENT?YES OCCUPATION: [employer]. DIET: REGULAR DIET, BARELY EATS. EXERCISE: NO REGULAR EXERCISE. MARITAL STATUS: .. OTHERS AT HOME: CHILD, BOYFRIEND. REVIEW OF SYSTEMS CONSTITUTIONAL: ANY RECENT FEVER NO . CHILLS NO . WEIGHT CHANGE OF UNKNOWN REASONS NO . GASTROENTEROLOGY: NEW UNEXPLAINABLE CHANGES IN BOWEL CONTROL NO . CONSTIPATION NO . GENITOURINARY: ANY NEW CHANGE IN BLADDER CONTROL? NO . NEUROLOGY: NEW ONSET DIZZINESS OR NEUROLOGICAL CHANGES NOT MENTIONED NO . NEW NUMBNESS OR PAIN PATTERNS NOT MENTIONED AND PERTINENT TO TODAY'S VISIT NO . CARDIOLOGY: NEW CHEST PRESSURE NO . PATIENT DENIES NO . RESPIRATORY: UNEXPLAINABLE COUGH NO . NEW SHORTNESS OF BREATH NO . VITAL SIGNS WT 150 LBS, HT 62 IN, BMI 27.43 INDEX, BP 133/77 MM HG, HR 88 /MIN, RR 18 /MIN, TEMP 97.2 F, OXYGEN SAT % 100%, SAFE IN ENV? (Y/N) YEST.KRISTA DYE. EXAMINATION GENERAL EXAMINATION: GENERALAWAKE,ALERT ,PLEASANT . PSYCHAFFECT NORMAL . LUNGS:LUNG NIÑO ARE CLEAR TO AUSCULTATION BILATERALLY. GOOD MOVEMENT OF AIR . HEART:S1, S2 IN A REGULAR RATE AND RHYTHM. NO SIGNIFICANT MURMURS, RUBS OR GALLOPS NOTED . ASSESSMENTS LOW BACK PAIN AT MULTIPLE SITES - M54.5 (PRIMARY) MYALGIA, OTHER SITE - M79.18 TREATMENT LOW BACK PAIN AT MULTIPLE SITES INCREASE CYMBALTA CAPSULE DELAYED RELEASE PARTICLES, 60 MG, 1 CAPSULE, ORALLY, ONCE A DAY, 30 DAYS, 30 CAPSULE, REFILLS 2 CONTINUE TIZANIDINE HCL TABLET, 2 MG, 1 TABLET NEEDED, ORALLY, Q4-6 HRS NEEDED FOR SEVERE PAIN EPISODES NOT TO EXCEED 3 TAB IN 24HR PERIOD NOTES: TODAY I HAVE ADVISED HER TO TRY TIZANIDINE 2 MG TABLET FOR THOSE TIMES WHERE THE PAIN IS VERY INTENSE. SHE IS ADVISED TO TAKE THIS INITIALLY ON DAYS THAT SHE IS NOT DRIVING OR WORKING. TODAY WE INCREASED CYMBALTA TO 60 MG DAILY. ADVISED TO CONTINUE TYLENOL/IBUPROFEN COMBINATION PILL 3 TIMES DAILY. FOLLOW-UP SCHEDULED IN 3 MONTHS. PROCEDURE CODES [id number] ESTABILISHED PATIENT [facility] CHARGE DISPOSITION & COMMUNICATION FOLLOW UP 3 MONTHS (REASON: MEDICATION MANAGEMENT) ELECTRONICALLY SIGNED BY LIZZ MENON ON 12/25/2020 AT 01:11 PM EDT DISCLAIMER : THIS IS A VISIT SUMMARY EXTRACTED FROM THE [employer] CHART. IT IS NOT A COPY OF THE [employer] PROGRESS NOTE. LOGAN
== END ==
LOC: M PAIN 14:45
PROVIDERS: ATTEND Nurse Practitioner Family
DX: M54.5 Low back pain (principal); M79.18 Myalgia, other site; J30.2 Other seasonal allergic rhinitis; K21.9 Gastro-esophageal reflux disease without esophagitis; F17.210 Nicotine dependence, cigarettes, uncomplicated; F42.9 Obsessive-compulsive disorder, unspecified; Z79.899 Other long term (current) drug therapy; Z88.2 Allergy status to sulfonamides

== ENCOUNTER → 2020-12-26 | Outpatient (REF) | payer OTHER ==
[2020-12-26 16:35] LABS: THYROID STIMULATING HORMONE 0.49 uIU/ML (0.358-3.740)
[2020-12-26 16:49] LABS: HEMOGLOBIN A1c 5.2 %
== END ==
LOC: M SFHCPLAZ 15:35
PROVIDERS: ATTEND Nurse Practitioner Family
DX: Z13.220 Encounter for screening for lipoid disorders (principal); Z13.1 Encounter for screening for diabetes mellitus; Z13.228 Encounter for screening for other metabolic disorders

== ENCOUNTER → 2021-03-20 | Outpatient (CLI) | payer OTHER ==
[2021-03-20 17:46] LABS: BASO # 0.1 10^3/uL (0.0-0.2); BASO % 0.6 % (0.0-1.0); EOS # 0.5 10^3/uL (0.0-0.5); HEMATOCRIT 40.1 % (36.0-47.0); HEMOGLOBIN 13.5 g/dl (12.0-15.5); LYMPH # 2.8 10^3/uL (1.5-5.0); LYMPH % 26.1 % (24.0-44.0); MEAN CORPUSCULAR HEMOGLOBIN 30.8 pg (27.0-33.0); MEAN CORPUSCULAR HGB CONC 33.7 g/dl (32.0-36.5); MEAN CORPUSCULAR VOLUME 91.3 fl (80.0-96.0); MONO # 1.1 10^3/uL (0.0-0.8); MONO % 10.3 % (2.0-8.0); NEUTROPHILS # 6.2 10^3/uL (1.5-8.5); NEUTROPHILS % 57.4 % (36.0-66.0); PLATELET COUNT, AUTOMATED 452 10^3/uL (150-450); RED BLOOD COUNT 4.39 10^6/uL (4.00-5.40); WHITE BLOOD COUNT 10.8 10^3/uL (4.0-10.0)
[2021-03-20 18:15] LABS: C REACTIVE PROTEIN QUANTITATIV < 0.30 MG/DL (0.00-0.30); RHEUMATOID FACTOR QUANT < 10.0 IU/ML (<15.0)
[2021-03-20 18:38] LABS: ERYTHROCYTE SEDIMENTATION RATE 1 mm/hr (0-20)
== END ==
LOC: M PLALAB 15:05
PROVIDERS: ATTEND Orthopaedic Surgery
DX: M51.36 Other intervertebral disc degeneration, lumbar region (principal)

== ENCOUNTER → 2021-03-26 | Outpatient (CLI) | payer OTHER | LOC: M PAIN 14:45 | PROVIDERS: ATTEND Anesthesiology | DX: M79.18 Myalgia, other site (principal); M54.50 Low back pain, unspecified; K21.9 Gastro-esophageal reflux disease without esophagitis; F17.210 Nicotine dependence, cigarettes, uncomplicated; Z86.59 Personal history of other mental and behavioral disorders; Z88.1 Allergy status to other antibiotic agents; Z88.6 Allergy status to analgesic agent; Z79.899 Other long term (current) drug therapy ==

== ENCOUNTER → 2021-06-04 | Outpatient (CLI) | payer OTHER ==
[~2021-06-04] MED LIST changes: +ACET650T61 PO; +DULO1CAP6 PO; +IBUP-1022 PO; +TIZA2TA PO
== END ==
LOC: M LABSMTC 10:48
PROVIDERS: ATTEND Anesthesiology
DX: Z20.822 Contact with and (suspected) exposure to COVID-19 (principal)

== ENCOUNTER → 2021-07-03 | Outpatient (CLI) | payer OTHER | LOC: M PAIN 14:30 | PROVIDERS: ATTEND Anesthesiology | DX: M79.18 Myalgia, other site (principal); M54.50 Low back pain, unspecified; R10.2 Pelvic and perineal pain; K21.9 Gastro-esophageal reflux disease without esophagitis; F17.210 Nicotine dependence, cigarettes, uncomplicated; Z86.59 Personal history of other mental and behavioral disorders; Z88.1 Allergy status to other antibiotic agents; Z88.6 Allergy status to analgesic agent; Z79.899 Other long term (current) drug therapy ==

== ENCOUNTER → 2021-07-03 | Outpatient (CLI) | payer OTHER | LOC: M RAD 15:35 | PROVIDERS: ATTEND Anesthesiology | DX: R10.2 Pelvic and perineal pain (principal) ==

== ENCOUNTER → 2021-09-04 | Outpatient (CLI) | payer OTHER | LOC: M WHC 15:13 | PROVIDERS: ATTEND Obstetrics & Gynecology | DX: Z12.31 Encounter for screening mammogram for malignant neoplasm of breast (principal) ==

== ENCOUNTER → 2021-12-10 | Outpatient (CLI) | payer OTHER | LOC: M LABSMTC 09:17 | PROVIDERS: ATTEND Anesthesiology | DX: Z01.818 Encounter for other preprocedural examination (principal); Z11.52 Encounter for screening for COVID-19 ==

== ENCOUNTER 2021-12-12 12:03 | Day surgery (SDC) | payer OTHER ==
[~2021-12-12] VITALS: Ht 160 cm; Wt 74.3 kg
[~2021-12-12 12:03] MED LIST changes: +NS 1,000 ML IV ONE
[2021-12-12] MEDS ORDERED: ZYRTTAB8 PO (12:49)
[2021-12-12] MEDS ORDERED: fentaNYL 100 MCG/2 ML INJECTION As Ordered ONE (13:11)
[2021-12-12] MEDS ORDERED: propofoL 500 MG/50 ML VIAL As Ordered ONE (13:12)
[2021-12-12] MEDS ORDERED: GLYCOPYRROLATE INJ 0.2 MG/ML 2 ML VIAL As Ordered ONE (13:56)
[2021-12-12] MEDS ORDERED: LIDOCAINE 2% INJ 100 MG/5 ML SYRINGE As Ordered ONE (13:56)
[2021-12-12 14:45] VITALS: BP 116/65
== END 2021-12-12 14:52 | disposition home or self-care (01) ==
LOC: M OPP 12:03
PROVIDERS: ATTEND Internal Medicine Gastroenterology
DX: K58.9 Irritable bowel syndrome, unspecified (principal); R19.4 Change in bowel habit; R12 Heartburn; K64.8 Other hemorrhoids; K44.9 Diaphragmatic hernia without obstruction or gangrene; K21.9 Gastro-esophageal reflux disease without esophagitis; F17.210 Nicotine dependence, cigarettes, uncomplicated; Z88.2 Allergy status to sulfonamides; Z88.8 Allergy status to other drugs, medicaments and biological substances; Z79.899 Other long term (current) drug therapy; Z83.3 Family history of diabetes mellitus; Z80.8 Family history of malignant neoplasm of other organs or systems; Z82.69 Family history of other diseases of the musculoskeletal system and connective tissue; Z83.79 Family history of other diseases of the digestive system
CPT/HCPCS: 43235; 45378; J3010

== ENCOUNTER → 2022-04-10 | Outpatient (CLI) | payer OTHER ==
[~2022-04-10] MED LIST changes: -NS 1,000 ML IV ONE; +ZYRTTAB8 PO; +[UNRECOGNIZED DRUG - CODE] PO; -[UNRECOGNIZED DRUG - CODE] PO
== END ==
LOC: M PLAIMG 13:56
PROVIDERS: ATTEND Nurse Practitioner Family
DX: M25.551 Pain in right hip (principal); M25.552 Pain in left hip

== ENCOUNTER → 2022-07-31 | Outpatient (CLI) | payer OTHER ==
[2022-07-31 16:25] LABS: HEMATOCRIT 43.1 % (36.0-47.0); HEMOGLOBIN 14.5 g/dl (12.0-15.5); MEAN CORPUSCULAR HEMOGLOBIN 30.1 pg (27.0-33.0); MEAN CORPUSCULAR HGB CONC 33.6 g/dl (32.0-36.5); MEAN CORPUSCULAR VOLUME 89.6 fl (80.0-96.0); PLATELET COUNT, AUTOMATED 451 10^3/uL (150-450); RED BLOOD COUNT 4.81 10^6/uL (4.00-5.40); WHITE BLOOD COUNT 9.6 10^3/uL (4.0-10.0)
[2022-07-31 16:58] LABS: ALBUMIN 3.8 G/DL (3.2-5.2); ALKALINE PHOSPHATASE 75 U/L (46-116); ALT/SGPT 18 U/L (7.0-40); AST/SGOT 14 U/L (<34); BILIRUBIN,TOTAL 0.4 MG/DL (0.3-1.2); BLOOD UREA NITROGEN 17 MG/DL (9-23); CALCIUM LEVEL 9.6 MG/DL (8.5-10.1); CARBON DIOXIDE LEVEL 28 MMOL/L (20-31); CHLORIDE LEVEL 106 MMOL/L (98-107); CHOLESTEROL LEVEL 180 MG/DL (<200); CHOLESTEROL RISK RATIO 2.35 (<5); CREATININE FOR GFR 0.61 MG/DL (0.55-1.30); GLOMERULAR FILTRATION RATE > 60.0 (>58); GLUCOSE, FASTING 85 MG/DL (60-100); HDL CHOLESTEROL 76.5 MG/DL (>40); LDL CHOLESTEROL 95.1 MG/DL (<100); MAGNESIUM LEVEL 1.9 MG/DL (1.8-2.4); NON-HDL-C 104 MG/DL; POTASSIUM SERUM 3.8 MMOL/L (3.5-5.1); SODIUM LEVEL 140 MMOL/L (136-145); TOTAL PROTEIN 6.6 G/DL (5.7-8.2); TRIGLYCERIDES LEVEL 42 MG/DL (<150)
[2022-07-31 17:33] LABS: HEMOGLOBIN A1c 4.8 % (4.0-6.0)
== END ==
LOC: M WUC 12:13
PROVIDERS: ATTEND Family Medicine
DX: G89.29 Other chronic pain (principal); Z13.1 Encounter for screening for diabetes mellitus; Z13.220 Encounter for screening for lipoid disorders; D72.829 Elevated white blood cell count, unspecified; R00.2 Palpitations

== ENCOUNTER → 2022-09-11 | Outpatient (CLI) | payer OTHER | LOC: M WHC 12:55 | PROVIDERS: ATTEND Obstetrics & Gynecology | DX: Z12.31 Encounter for screening mammogram for malignant neoplasm of breast (principal) ==

== ENCOUNTER → 2022-10-16 | Outpatient (CLI) | payer OTHER | LOC: M PLAIMG 11:10 | PROVIDERS: ATTEND Nurse Practitioner Family | DX: M54.12 Radiculopathy, cervical region (principal); M48.02 Spinal stenosis, cervical region ==

== ENCOUNTER → 2023-08-06 | Outpatient (CLI) | payer OTHER ==
[2023-08-06 18:29] LABS: APPEARANCE, URINE HAZY (CLEAR); BACTERIA, URINE AUTO NEGATIVE (NEGATIVE); BILIRUBIN, URINE AUTO NEGATIVE (NEGATIVE); BLOOD, URINE BLOOD NEGATIVE (NEGATIVE); COLOR, URINE YELLOW (YELLOW); GLUCOSE, URINE (UA) AUTO NEGATIVE (NEGATIVE); HEMATOCRIT 43.9 % (36.0-47.0); HEMOGLOBIN 15.1 g/dl (12.0-15.5); KETONE, URINE AUTO NEGATIVE (NEGATIVE); LEUKOCYTE ESTERASE, URINE AUTO NEGATIVE (NEGATIVE); MEAN CORPUSCULAR HEMOGLOBIN 31.1 pg (27.0-33.0); MEAN CORPUSCULAR HGB CONC 34.4 g/dl (32.0-36.5); MEAN CORPUSCULAR VOLUME 90.5 fl (80.0-96.0); MUCUS, URINE SMALL (NEGATIVE); NITRITE, URINE AUTO NEGATIVE (NEGATIVE); PLATELET COUNT, AUTOMATED 426 10^3/uL (150-450); PROTEIN, URINE AUTO NEGATIVE (NEGATIVE); RBC, URINE AUTO 4 /HPF (0-3); RED BLOOD COUNT 4.85 10^6/uL (4.00-5.40); SPECIFIC GRAVITY URINE AUTO 1.025 (1.002-1.035); SQUAMOUS EPITHELIAL CELL UR AU 2 /HPF (0-6); UROBILINOGEN, URINE AUTO 0.2 mg/dL (0.0-2.0); WBC, URINE AUTO 1 /HPF (0-3); WHITE BLOOD COUNT 12.6 10^3/uL (4.0-10.0)
[2023-08-06 19:01] LABS: ALBUMIN 3.7 G/DL (3.2-5.2); ALKALINE PHOSPHATASE 72 U/L (46-116); ALT/SGPT 17 U/L (7.0-40); AST/SGOT 10 U/L (<34); BILIRUBIN,TOTAL 0.3 MG/DL (0.3-1.2); BLOOD UREA NITROGEN 23 MG/DL (9-23); CALCIUM LEVEL 8.9 MG/DL (8.5-10.1); CARBON DIOXIDE LEVEL 25 MMOL/L (20-31); CHLORIDE LEVEL 105 MMOL/L (98-107); CHOLESTEROL LEVEL 170 MG/DL (<200); CHOLESTEROL RISK RATIO 2.34 (<5); CREATININE FOR GFR 0.53 MG/DL (0.55-1.30); FOLATE > 24.00 NG/ML (>5.4); GLOMERULAR FILTRATION RATE > 60.0 (>58); GLUCOSE, FASTING 77 MG/DL (60-100); HDL CHOLESTEROL 72.6 MG/DL (>40); LDL CHOLESTEROL 86.2 MG/DL (<100); NON-HDL-C 97.4 MG/DL; POTASSIUM SERUM 3.7 MMOL/L (3.5-5.1); SODIUM LEVEL 136 MMOL/L (136-145); THYROID STIMULATING HORMONE 0.688 uIU/ML (0.55-4.78); TOTAL 25(OH) VITAMIN D 22.6 NG/ML (20.0-100.0); TOTAL PROTEIN 6.8 G/DL (5.7-8.2); TRIGLYCERIDES LEVEL 56 MG/DL (<150)
[2023-08-06 19:02] LABS: VITAMIN B12 LEVEL 667 PG/ML (211-911)
[2023-08-06 19:06] LABS: HEMOGLOBIN A1c 4.9 % (4.0-6.0)
== END ==
LOC: M WUC 13:41
PROVIDERS: ATTEND Internal Medicine
DX: Z00.00 Encounter for general adult medical examination without abnormal findings (principal); F32.A Depression, unspecified; Z79.899 Other long term (current) drug therapy

== ENCOUNTER → 2023-09-17 | Outpatient (CLI) | payer OTHER | LOC: M WHC 12:55 | PROVIDERS: ATTEND Obstetrics & Gynecology | DX: Z12.31 Encounter for screening mammogram for malignant neoplasm of breast (principal) ==

== ENCOUNTER → 2023-10-14 | Outpatient (CLI) | payer OTHER ==
[2023-10-14 18:03] LABS: ALBUMIN 3.6 G/DL (3.2-5.2); ALKALINE PHOSPHATASE 68 U/L (46-116); ALT/SGPT 15 U/L (7.0-40); AST/SGOT 13 U/L (<34); BILIRUBIN,TOTAL 0.4 MG/DL (0.3-1.2); BLOOD UREA NITROGEN 20 MG/DL (9-23); CARBON DIOXIDE LEVEL 23 MMOL/L (20-31); CHLORIDE LEVEL 108 MMOL/L (98-107); CREATININE FOR GFR 0.65 MG/DL (0.55-1.30); GLOMERULAR FILTRATION RATE > 60.0 (>58); GLUCOSE, FASTING 68 MG/DL (60-100); PHOSPHORUS LEVEL 3.5 MG/DL (2.5-4.9); POTASSIUM SERUM 3.3 MMOL/L (3.5-5.1); PTH INTACT 31.5 PG/ML (18.5-88.0); SODIUM LEVEL 137 MMOL/L (136-145); TOTAL PROTEIN 6.2 G/DL (5.7-8.2)
== END ==
LOC: M WUC 14:19
PROVIDERS: ATTEND Internal Medicine Cardiovascular Disease
DX: E83.30 Disorder of phosphorus metabolism, unspecified (principal); E11.9 Type 2 diabetes mellitus without complications

== ENCOUNTER → 2024-05-16 | Outpatient (REF) | payer OTHER | LOC: M LAB REF 16:24 | PROVIDERS: ATTEND Nurse Practitioner Family | DX: R30.0 Dysuria (principal) ==

== ENCOUNTER → 2024-09-29 | Outpatient (CLI) | payer OTHER | LOC: M WHC 12:53 | PROVIDERS: ATTEND Obstetrics & Gynecology | DX: Z12.31 Encounter for screening mammogram for malignant neoplasm of breast (principal); R92.323 Mammographic fibroglandular density, bilateral breasts ==

== ENCOUNTER → 2024-12-22 | Outpatient (CLI) | payer OTHER ==
[2024-12-22 14:31] LABS: PLATELET COUNT, AUTOMATED 448 10^3/uL (150-450)
[2024-12-22 14:46] LABS: ESTIMATED AVERAGE GLUCOSE 88.0 MG/DL (60-110)
[2024-12-22 15:01] LABS: ALT/SGPT 17 U/L (7.0-40); AST/SGOT 15 U/L (<34); CALCIUM LEVEL 8.6 MG/DL (8.5-10.1); CARBON DIOXIDE LEVEL 27 MMOL/L (20-31); CHLORIDE LEVEL 107 MMOL/L (98-107); CHOLESTEROL LEVEL 150 MG/DL (<200); CHOLESTEROL RISK RATIO 2.16 (<5); CREATININE FOR GFR 0.60 MG/DL (0.55-1.30); GLOMERULAR FILTRATION RATE > 90.0 (>58); LDL CHOLESTEROL 71.8 MG/DL (<100); NON-HDL-C 80.6 MG/DL; POTASSIUM SERUM 3.6 MMOL/L (3.5-5.1); SODIUM LEVEL 143 MMOL/L (136-145); TRIGLYCERIDES LEVEL 44 MG/DL (<150)
[2024-12-22 15:13] LABS: VITAMIN B12 LEVEL > 2000 PG/ML (211-911)
== END ==
LOC: M WUC 12:25
PROVIDERS: ATTEND Family Medicine
DX: F41.9 Anxiety disorder, unspecified (principal); Z13.1 Encounter for screening for diabetes mellitus; Z13.220 Encounter for screening for lipoid disorders; Z13.21 Encounter for screening for nutritional disorder